=== PATIENT | male | born 1980 | race Hispanic/Latino ===

== ENCOUNTER 2020-09-15 18:00 | Inpatient (IN) | payer BC, SELFPAY ==
[2020-09-15 19:40] VITALS: BMI 38.6
[2020-09-15 20:04] LABS: Amphetamine Not Detected (NotDetected); Barbiturates Screen Not Detected (NotDetected); Benzodiazepine Screen Not Detected (NotDetected); Cocaine Metabolite Screen Not Detected (NotDetected); Medtox Control Line Valid? VALID (VALID); Medtox Reader # READER 1; Methadone Not Detected (NotDetected); Methamphetamine Not Detected (NotDetected); Opiate Screen Not Detected (NotDetected); Oxycodone Screen Not Detected (NotDetected); Phencyclidine (PCP) Not Detected (NotDetected); THC/Cannabinoid Screen Not Detected (NotDetected); Tricyclic Screen Not Detected (NotDetected)
[2020-09-15] MEDS ORDERED: Acetaminophen 325 MG TAB PO PRN (21:12)
[2020-09-15] MEDS ORDERED: hydrALAZINE 20 MG/ML VIAL SLOW IVP PRN (21:14)
[2020-09-15] MEDS ORDERED: Dextrose 50% Abboject 50 ML SYRINGE SLOW IVP PRN (21:17)
[2020-09-15] MEDS ORDERED: HumaLOG 300 UNITS/3 ML VIAL SC PRN (21:17)
[2020-09-15] MEDS ORDERED: Dextrose 5% in Water 1,000 ML IV PRN (21:17)
--- NOTE | 2020-09-15 21:29 | PDOC.HHP ---
Hospitalist HPI - History of Present Illness Right sided weakness, slurred speach History of Present Illness: Mr. Corbin is a 39-year-old male with a past medical history of hypertension, type 2 diabetes mellitus on insulin, tobacco use who presented to [place] [facility] for acute onset of right upper extremity weakness and aphasia. Patient reports that this afternoon he was sweeping snow off of his deck when all of a sudden his right arm dropped and he was no longer able to move it. Patient reports he felt lack of sensation climbed to his neck and up his face. Patient's was there who witnessed the incident and who noticed patient had garbled speech. This episode lasted approximately 15 minutes and then completely resolved. No history of episodes like this. Patient denies chest pain, shortness of breath, visual changes. Denies any abdominal pain, nausea vomiting diarrhea. No known Covid contacts. Patient does report that he has not taken any of his diabetes or blood pressure medicines in the past year secondary to losing his job and health insurance. Patient does currently have health insurance, but has not reestablish care with a primary care provider. He reports he smokes 4 to 5 cigarettes/day currently. At [place] emergency room initial blood pressure 213/118, 74, 13, 98.1, 98% on room air. CT brain with no acute findings. Troponin less than 0.018. EKG showed normal sinus rhythm with no ischemic changes. H/H 18.1/45.1. WBC 9.4. BUNs/CR 12/0.98. Sodium 140, potassium 3.7. Glucose 269. BNP less than 10. Patient received aspirin and was transferred to [facility] for further evaluation of suspected CVA Hospitalist ROS - Review of Systems Constitutional: denies: fever, chills, sweats, weakness, malaise, other Eyes: denies: pain, vision change, conjunctivae inflammation, eyelid inflammation, redness, other ENT: denies: ear pain, ear discharge, nose pain, nose discharge, nose congestion, mouth pain, mouth swelling, throat pain, throat swelling, other Respiratory: denies: cough, dry, shortness of breath, hemoptysis, SOB with excertion, pleuritic pain, sputum, wheezing, other Cardiovascular: denies: chest pain, palpitations, orthopnea, paroxysmal noc. dyspnea, edema, light headedness, other Gastrointestinal: denies: nausea, vomiting, abdominal pain, diarrhea, constipation, melena, hematochezia, other Genitourinary: denies: dysuria, frequency, incontinence, hematuria, retention, other Musculoskeletal: denies: neck pain, shoulder pain, arm pain, back pain, hand pain, leg pain, foot pain, other Skin: denies: rash, lesions, rhona, bruising, other Neurological: reports: weakness, numbness, change in speech. denies: incoordination, confusion, seizures, other - Medication Medications: Patient not currently taking any home medications but a year ago was taking Lantus Lisinopril Metformin Allergy to penicillin Hospitalist History - Past Medical History Other Medical History: Past medical history seen for Hypertension Type 2 diabetes mellitus on insulin Medication noncompliance secondary to financial issues - Past Surgical History Other Surgical History: Past surgical history of cyst removal to the neck - Family History Other Family History: Reports family history of hypertension - Social History Smoking Status: Current every day smoker Tobacco Type: cigarettes Alcohol: reports: Rare Drugs: reports: none Living Situation: With Family Activity level: independent ambulation - Exam General Appearance: NAD, awake alert Eye: PERRL, anicteric sclera ENT: normocephalic atraumatic, no oropharyngeal lesions, moist mucosa Neck: supple, symmetric, no JVD, no thyromegaly, no lymphadenopathy, no carotid bruit Heart: RRR, no murmur, no gallops, no rubs, normal peripheral pulses Respiratory: CTAB, no wheezes, no rales, no ronchi, normal chest expansion, no tachypnea, normal percussion Gastrointestinal: soft, non-tender, non-distended, normal bowel sounds, no palpable masses, no hepatomegaly, no splenomegaly, no bruit Extremities: no cyanosis, no clubbing, no edema Skin: normal turgor, no lesions, no rashes Neurological: cranial nerve grossly intact, normal sensation to touch, no weakness, no focal deficits, no new deficit Musculoskeletal: normal tone, normal strength, no muscle wasting Psychiatric: normal affect, normal behavior, A&O x 3 Hospitalist Results - Labs Result Diagrams: 09/17/20 04:05 09/17/20 04:05 Hospitalist H&P A/P - Plan Plan: Transient ischemic attack 39-year-old male with past medical history of type 2 diabetes mellitus, hypertension, tobacco use, medication noncompliance secondary to financial issues presents with right upper extremity weakness, facial droop and aphasia consistent with TIA. Symptoms lasted approximately 15 minutes and have now completely resolved. CT brain negative for acute pathology. Neuro exam within normal limits. Patient denies headache, no signs of infectious process. Patient received 325 mg of aspirin at outside hospital. Will work-up for TIA and consult neurology, recommendations appreciated. Plan MRI brain Echocardiogram, carotid ultrasound Aspirin, statin Hemoglobin A1c, lipid panel, TSH, magnesium Every 4 hours neuro checks Permissive hypertension, strict glucose control Neurology consult, recommendations appreciated Type 2 diabetes mellitus insulin-dependent Patient has history of type 2 diabetes mellitus and a year ago was on Metformin and Lantus. Patient had temporary lapse in insurance and due to financial issues stopped taking his medications a year ago. Patient now employed with in [employer], but has not reestablish care with PCP. Glucose elevated on presentation to 333. Given patient's TIA, impressed upon patient importance of restarting his diabetes medications and establishing care with a primary care provider. Will place on insulin sliding scale and closely monitor glucose levels. Plan ISS ACH S glucose checks Carb consistent diet Establish care with PCP Hypertension History of hypertension formally on lisinopril, but not taking secondary to financial issues. We will allow permissive hypertension secondary to TIA versus CVA, but make hydralazine available as needed. Tobacco use Patient currently smokes 4 cigarettes daily, down from 1 pack/day earlier this year. Patient endorses willingness to quit. Counseled on tobacco cessation. DVT prophylaxisLovenox Full codeMDM is patient's Case discussed with attending physician Dr. Guerrero.
[2020-09-15 22:10] LABS: Hemoglobin A1c 11.4 % (4.0-6.0)
[2020-09-16 04:49] LABS: %Lymphocytes 45.6 % (21.0-51.0); %Neutrophils 43.6 % (42.0-75.0); Hemoglobin 15.4 g/dL (14.0-18.0); Mean Corpuscular HGB CONC 33.8 g/dL (32.0-36.0); Mean Corpuscular Hemoglobin 28.7 pg (27.0-31.0); Mean Corpuscular Volume 84.8 fL (78.0-98.0); Mean Platelet Volume 9.9 fL (7.4-10.4); Platelet Count 192 thou/uL (130-400); RBC Distribution Width 11.3 % (11.5-14.5); Red Blood Cell (RBC) Count 5.38 mill/uL (4.70-6.10); White Blood Cell (WBC) Count 7.8 thou/uL (4.8-10.8)
[2020-09-16 04:50] LABS: #Eosinphils 0.3 thou/uL (0.0-0.7); #Lymphocytes 3.6 thou/uL (1.20-3.40); #Monocytes 0.5 thou/uL (0.11-0.59); #Neutrophils 3.4 thou/uL (1.40-6.50); %Basophils 0.6 % (0.0-1.0); %Eosinophils 3.6 % (0.0-10.0); %Monocytes 6.6 % (0.0-10.0)
[2020-09-16 05:07] LABS: Anion Gap 13 mmol/L (10-20); BUN (Urea Nitrogen) 14 mg/dL (8.9-20.6); Calc. Creatinine Clearance 214 mL/min (70-130); Carbon Dioxide 27 mmol/L (22-29); Cardiac Risk 7.9 (Less than 4.5); Chloride 101 mmol/L (98-107); Cholesterol 262 mg/dl (< 200 Desired); Glucose 245 mg/dL (70-105); HDL Cholesterol 33 mg/dL (>60 Neg Risk); Potassium 3.7 mmol/L (3.5-5.1); Sodium 137 mmol/L (136-145); Triglycerides 439 mg/dL (Less than 150)
[2020-09-16] MEDS: HumaLOG 300 UNITS/3 ML VIAL SC PRN ×3 (05:47→16:42)
[2020-09-16 05:56] LABS: SARS-CoV-2 MS2 Positive; SARS-CoV-2 N Gene Negative; SARS-CoV-2 S Gene Negative; SARS-CoV-2 by NAA Not Detected (NotDetected); SARS-CoV-2 orf1ab Negative
[2020-09-16] MEDS: Enoxaparin Sodium 40 MG/0.4 ML SYRINGE SC SCH (08:48)
[2020-09-16] MEDS: Aspirin 81 mg Enteric Coated Tablet PO SCH (08:48)
[2020-09-16] MEDS ORDERED: metFORMIN 500 MG TAB PO SCH (11:00)
--- NOTE | 2020-09-16 13:27 | ULT ---
BILATERAL CAROTID DUPLEX ULTRASOUND: DATE: 09/16/2020 HISTORY: CVA. FINDINGS: Exam is technically difficult due to neck size. Real-time color Doppler evaluation of the right and left carotid systems was performed. On the right side, peak systolic velocities of the common carotid were 113 cm/second. Internal caroti d velocities were 77 cm/second and external carotid velocities were 115 cm/second. On the left side, peak systolic velocities of the common carotid were 100 cm/second. Internal carotid velocities were 104 cm/second and external carotid velocities were 136 cm/second. Vertebral flow was antegrade bilaterally. IMPRESSION: No evidence of hemodynamically significant stenosis of either internal carotid artery by NASCET crite jaiden. POS: CHUCHO
[2020-09-16 13:30] LABS: Protein C Activity 154 % (78-152)
--- NOTE | 2020-09-16 14:03 | PDOC.EEG ---
Neurology EEG Report - Report Report: This EEG was performed using 24 channel [employer] video EEG machine with 24 disc electrodes. This was an extended 2 hours 5 minutes of inpatient video EEG recording. Digital analysis of the EEG was done for spike and seizure detection which revealed no abnormalities. Background: There is a nonsustained posterior background rhythm of 8.5-9 Hz. The background rhythm attenuates with eye opening and enhances with eye closure. Hyperventilation: Not performed. Photic Stimulation: No significant response. Sleep: Drowsiness is observed . EEG Diagnosis: Normal awake and drowsy EEG.
--- NOTE | 2020-09-16 14:10 | MRI ---
MRI brain noncontrast HISTORY: Right arm weakness. FINDINGS: There are 5 small foci of restricted diffusion involving the gyri at the left posterior fro ntotemporal and parietal levels. The largest is at the medial aspect of the parietal lobe measuring up to 1.7 cm. Subtle corresponding signal abnormalities on the FLAIR and T2-weighted images. No mass effect. Septum pellucidum is midline. No acute hemorrhage or other areas of infarct. Mild muc osal thickening within the ethmoid air cells. IMPRESSION : Several small foci of acute infarct in the posterior distribution of the left middle cerebral artery, correlating with the patient's symptoms.
--- NOTE | 2020-09-16 15:06 | CON ---
NEUROLOGY CONSULTATION DATE OF CONSULTATION: 09/16/2020 REASON FOR CONSULTATION: Episode of right-sided weakness with slurred speech/rule out stroke. HISTORY OF PRESENT ILLNESS: Mr. Corbin is a 39-year-old male with medical history significant for hypertension; type 2 diabetes mellitus, on insulin; tobacco abuse, presented to the emergency room at [place] for acute onset right upper extremity weakness with aphasia. Per the patient, yesterday afternoon he was cleaning snow when all of a sudden, he felt his right arm drop and he was no longer able to move it. Per the patient, he also has loss of sensation in his neck and also on the left side of the face. The patient's , who witnessed the incident and noticed that he had a garbled speech. The episode lasted for about 15 minutes and then completely resolved on its own. The patient denies any previous history of similar episodes. He also denies nausea, vomiting, headache, chest pain, abdominal pain, recent illness or recent exposure to COVID, double vision, loss of vision, dizziness or headache. Per patient, he has not taken his diabetes and blood pressure medications since the past year, because he lost his job and also the health insurance. He smokes about 4 to 5 cigarettes a day. In the emergency room, he was found to be in hypertensive emergency with blood pressure of 213/118, pulse 74, respiratory rate 18. CT scan was done, which did not reveal any acute intracranial pathology. Cardiac enzymes were unremarkable. EKG showed normal sinus rhythm and the labs were essentially unremarkable. He was transferred to [facility] for evaluation of transient ischemic attack. REVIEW OF SYSTEMS: All systems reviewed and were negative except the pertinent positives and negatives mentioned in the HPI. MEDICATIONS: The patient was currently not taking any medications because of loss of insurance. ALLERGIES: PENICILLIN. PAST MEDICAL HISTORY: Hypertension; type 2 diabetes mellitus, on insulin; medication noncompliance secondary to financial issues. PAST SURGICAL HISTORY: Cyst removal from the neck. FAMILY HISTORY: Significant for hypertension. SOCIAL HISTORY: The patient lives with family. He does smoke cigarettes every day. Denies alcohol, illegal drug abuse. PHYSICAL EXAMINATION: CVS: Regular rate and rhythm. CHEST: Clear. ABDOMEN: Soft. NECK: Supple. NEUROLOGICAL: Mental status, the patient is alert and oriented to person, place, and time. Recent and remote memory intact. Fund of knowledge is appropriate. Speech is clear. Cranial nerves 2 through 12 intact. Motor, muscle tone and bulk are normal. Strength 5/5 bilaterally. Sensory intact. Cerebellar, finger-nose testing intact. Gait deferred due to patient's safety reason. DATA REVIEWED: I reviewed the head CT which was negative for acute intracranial pathology. EEG did not show any evidence of seizure activity. ASSESSMENT AND PLAN: Mr. Alexia Corbin is a 39-year-old male who was consulted for an episode of slurred speech with right upper extremity weakness, which resolved on its own. Differential diagnosis includes stroke versus transient ischemic attack. Consider MRI of the brain to rule out acute intracranial process. 2D echo to evaluate for left ventricular ejection fraction and to rule out PFO or thrombus. Carotid Dopplers to rule out hemodynamically significant stenosis. Continue telemetry to rule out arrhythmias. Start aspirin, high-intensity statin for secondary stroke prevention. Check hemoglobin A1c, lipid panel, TSH, and magnesium. Neuro checks every 4 hours. Permissive control of blood pressure at this time. Strict control of blood glucose. Continue PT/OT/Speech. Check thrombosis panel. Continue Case Management consult regarding insurance issues. Continue medical management per primary team. EEG to rule out cortical irritability is negative for seizure activity. The patient counseled about tobacco abuse. We will continue to follow. Thank you for the consult. Job ID: [id number] MTDD
--- NOTE | 2020-09-16 16:13 | PDOC.HOSPP ---
- Subjective Encounter Date: 09/16/20 Encounter Time: 16:00 Subjective: f/u for R hemiparesis/dysarthria with MRI brain showing acute infarct of L MCA territory. Receiving ASA/Lipitor. Feels better overall and all deficits have resolved. - Objective Vital Signs & Weight: Vital Signs (12 hours) Temp Pulse Pulse Pulse Resp BP BP 09/16/20 15:31 55 L 78 120/71 144/94 H 09/16/20 11:47 67 134/82 09/16/20 11:34 68 14 09/16/20 08:00 97.6 F 52 L 16 BP Pulse Ox 09/16/20 15:31 09/16/20 11:47 09/16/20 11:34 134/82 96 09/16/20 08:00 128/72 98 Weight Weight 277 lb I&O: 09/15/20 09/16/20 09/17/20 06:59 06:59 06:59 Intake Total 600 Balance 600 Result Diagrams: 09/16/20 04:10 09/16/20 04:10 Additional Labs: Accuchecks 09/16/20 09/16/20 09/15/20 10:34 05:36 20:27 POC Glucose 312 H 228 H 235 H Laboratory Tests 09/15/20 09/15/20 09/15/20 21:48 21:48 21:48 Hemoglobin A1c 11.4 H Triglycerides Cholesterol HDL Cholesterol Vitamin B12 Folate 12.10 Homocysteine TSH 3rd Generation 0.3262 L SARS-CoV-2 (PCR) 09/15/20 09/15/20 09/16/20 21:48 23:03 04:10 Hemoglobin A1c Triglycerides 439 H Cholesterol 262 H HDL Cholesterol 33 Vitamin B12 334 Folate Homocysteine TSH 3rd Generation SARS-CoV-2 (PCR) Not Detected 09/16/20 12:43 Hemoglobin A1c Triglycerides Cholesterol HDL Cholesterol Vitamin B12 Folate Homocysteine 6.74 TSH 3rd Generation SARS-CoV-2 (PCR) Radiology Reviewed by me: Yes (MRI brain - acute infarct L MCA distribution; Carotid sono - neg) EKG Reviewed by me: Yes (Tele - SR) Hospitalist ROS - Medication Medications: Active Medications Generic Name Dose Route Start Last Admin Trade Name Freq PRN Reason Stop Dose Admin Acetaminophen 650 mg 09/15/20 21:12 09/16/20 05:50 Acetaminophen 325 Mg Tab PO 650 mg Q4H PRN Administration Headache/Fever/Mild Pain (1-3) Aspirin 81 mg 09/16/20 09:00 09/16/20 08:48 Aspirin 81 Mg Enteric Coated Tablet PO 81 mg DAILY SHANEL Administration Enoxaparin Sodium 40 mg 09/16/20 09:00 09/16/20 08:48 Enoxaparin Sodium 40 Mg/0.4 Ml Syringe SC 40 mg 0900 SHANEL Administration Insulin Human Lispro 0 units 09/15/20 21:17 09/16/20 11:31 Humalog 300 Units/3 Ml Vial SC 5 unit .MILD SLIDING SCALE PRN Administration Mild Correctional Scale Insulin Human Lispro 0 units 09/15/20 21:17 09/15/20 22:17 Humalog 300 Units/3 Ml Vial SC 2 unit .BEDTIME SLIDING SC PRN Administration Bedtime Correctional Scale - Exam General Appearance: NAD, awake alert Eye: PERRL, anicteric sclera ENT: normocephalic atraumatic, no oropharyngeal lesions Neck: supple, symmetric, no JVD, no thyromegaly, no lymphadenopathy Heart: RRR, no murmur, no gallops, no rubs, normal peripheral pulses Heart - other findings: S1, S2 Respiratory: CTAB, no wheezes, no rales, no ronchi, normal chest expansion Gastrointestinal: soft, non-tender, non-distended, normal bowel sounds, no palpable masses Extremities: no cyanosis, no clubbing, no edema Skin: normal turgor, no lesions Neurological: cranial nerve grossly intact, no new deficit Musculoskeletal: normal tone, normal strength, no muscle wasting Psychiatric: normal affect, A&O x 3 Hosp A/P (1) Acute CVA (cerebrovascular accident) Code(s): I63.9 - CEREBRAL INFARCTION, UNSPECIFIED Status: Acute Plan: Continue routine stroke protocol, continue ASA/Lipitor, 2D echo pending (2) Right hemiparesis Code(s): G81.91 - HEMIPLEGIA, UNSPECIFIED AFFECTING RIGHT DOMINANT SIDE Status: Acute Plan: Resolved (3) Diabetes mellitus type II, uncontrolled Code(s): E11.65 - TYPE 2 DIABETES MELLITUS WITH HYPERGLYCEMIA Status: Chronic Plan: Poor control due to non-compliance, start Metformin/Glipizide, ISS, ADA, A1C - 11.4 (4) HTN (hypertension) Code(s): I10 - ESSENTIAL (PRIMARY) HYPERTENSION Status: Chronic Qualifiers: Hypertension type: essential hypertension Qualified Code(s): I10 - Essential (primary) hypertension Plan: Start Lisinopril 5mg BID, serial BP monitoring (5) HLD (hyperlipidemia) Code(s): E78.5 - HYPERLIPIDEMIA, UNSPECIFIED Status: Chronic Plan: Poorly controlled, continue Lipitor 40mg HS - Plan PT/OT, social media sr strategy manager, out of bed/ambulate, DVT proph w/SCDs Stable currently Continue ASA/Lipitor Add Metformin 1000mg BID Add Glipizide 5mg BID Add Lisinopril 5mg BID 2D echo pending Likely home in am
[2020-09-16] MEDS: metFORMIN 500 MG TAB PO SCH (16:42)
[2020-09-16] MEDS: glipiZIDE 5 MG TAB PO SCH (16:42)
[2020-09-16] MEDS: Lisinopril 5 MG TAB PO SCH (20:22)
[2020-09-16] MEDS ORDERED: Atorvastatin Calcium 40 MG TAB PO SCH (21:00)
[2020-09-17 04:35] LABS: #Basophils 0.1 thou/uL (0.0-0.2); #Eosinphils 0.3 thou/uL (0.0-0.7); #Lymphocytes 3.3 thou/uL (1.20-3.40); #Monocytes 0.5 thou/uL (0.11-0.59); #Neutrophils 3.1 thou/uL (1.40-6.50); %Basophils 1.2 % (0.0-1.0); %Eosinophils 4.5 % (0.0-10.0); %Lymphocytes 45.2 % (21.0-51.0); %Monocytes 7.3 % (0.0-10.0); %Neutrophils 41.8 % (42.0-75.0); Hemoglobin 15.6 g/dL (14.0-18.0); Mean Corpuscular HGB CONC 34.9 g/dL (32.0-36.0); Mean Corpuscular Hemoglobin 29.5 pg (27.0-31.0); Mean Corpuscular Volume 84.8 fL (78.0-98.0); Mean Platelet Volume 9.7 fL (7.4-10.4); Platelet Count 191 thou/uL (130-400); RBC Distribution Width 11.2 % (11.5-14.5); Red Blood Cell (RBC) Count 5.27 mill/uL (4.70-6.10); White Blood Cell (WBC) Count 7.3 thou/uL (4.8-10.8)
[2020-09-17 04:55] LABS: Anion Gap 13 mmol/L (10-20); BUN (Urea Nitrogen) 13 mg/dL (8.9-20.6); Calc. Creatinine Clearance 225 mL/min (70-130); Calcium 8.9 mg/dL (7.8-10.44); Carbon Dioxide 26 mmol/L (22-29); Chloride 101 mmol/L (98-107); Glucose 172 mg/dL (70-105); Potassium 3.7 mmol/L (3.5-5.1); Sodium 136 mmol/L (136-145)
[2020-09-17] MEDS: Aspirin 81 mg Enteric Coated Tablet PO SCH (08:16)
[2020-09-17] MEDS: Lisinopril 5 MG TAB PO SCH (08:16)
[2020-09-17] MEDS: metFORMIN 500 MG TAB PO SCH (08:16)
[2020-09-17] MEDS: glipiZIDE 5 MG TAB PO SCH (08:16)
[2020-09-17] MEDS: Enoxaparin Sodium 40 MG/0.4 ML SYRINGE SC SCH (08:16)
[2020-09-17] MEDS: HumaLOG 300 UNITS/3 ML VIAL SC PRN (11:20)
--- NOTE | 2020-09-17 12:59 | PDOC.NEUPN ---
- Subjective Encounter Date: 09/17/20 Subjective: Mr. Corbin denies any new complaints and no focal deficits. MRI of the brain is positive for acute lacunar infarctions in the left middle cerebral artery territory. - Objective Vital Signs & Weight: Vital Signs (12 hours) Temp Pulse Resp BP BP Pulse Ox 09/17/20 11:18 97.5 F L 63 18 116/68 97 09/17/20 08:15 97.5 F L 57 L 18 115/58 L 987 H 09/17/20 05:19 95 09/17/20 03:04 98.1 F 52 L 18 103/56 L 95 Weight Weight 276 lb 9.6 oz I&O: 09/16/20 09/17/20 09/18/20 06:59 06:59 06:59 Intake Total 600 490 Balance 600 490 Result Diagrams: 09/17/20 04:05 09/17/20 04:05 Additional Labs: Accuchecks 09/17/20 09/17/20 09/16/20 10:37 05:35 20:37 POC Glucose 257 H 204 H 176 H 09/16/20 16:39 POC Glucose 260 H Radiology Reviewed by me: Yes EKG Reviewed by me: Yes ROS - Review of Systems Constitutional: denies: fever, chills, sweats, weakness, malaise, other Eyes: denies: pain, vision change, conjunctivae inflammation, eyelid inflammation, redness, other ENT: denies: ear pain, ear discharge, nose pain, nose discharge, nose congestion, mouth pain, mouth swelling, throat pain, throat swelling, other Respiratory: denies: cough, dry, shortness of breath, hemoptysis, SOB with excertion, pleuritic pain, sputum, wheezing, other Cardiovascular: denies: no pertinent history, AFIB, CAD, CHF, HTN, AL, Syncope, Hyperlipidemia, Mitral valve stenosis, Aortic stenosis, Valve insufficiency, Pulmonary hypertension, Other Gastrointestinal: denies: nausea, vomiting, abdominal pain, diarrhea, constipation, melena, hematochezia, other Musculoskeletal: denies: neck pain, shoulder pain, arm pain, back pain, hand pain, leg pain, foot pain, other Skin: denies: rash, lesions, rhona, bruising, other Neurological: denies: weakness, numbness, incoordination, change in speech, confusion, seizures, other - Medication Medications: Active Medications Generic Name Dose Route Start Last Admin Trade Name Priscilla PRN Reason Stop Dose Admin Acetaminophen 650 mg 09/15/20 21:12 09/16/20 05:50 Acetaminophen 325 Mg Tab PO 650 mg Q4H PRN Administration Headache/Fever/Mild Pain (1-3) Aspirin 81 mg 09/16/20 09:00 09/17/20 08:16 Aspirin 81 Mg Enteric Coated Tablet PO 81 mg DAILY SHANEL Administration Atorvastatin Calcium 40 mg 09/16/20 21:00 09/16/20 20:22 Atorvastatin Calcium 40 Mg Tab PO 40 mg HS SHANEL Administration Enoxaparin Sodium 40 mg 09/16/20 09:00 09/17/20 08:16 Enoxaparin Sodium 40 Mg/0.4 Ml Syringe SC 40 mg 0900 SHANEL Administration Glipizide 5 mg 09/16/20 16:30 09/17/20 08:16 Glipizide 5 Mg Tab PO 5 mg BID-AC SHANEL Administration Insulin Human Lispro 0 units 09/15/20 21:17 09/17/20 11:20 Humalog 300 Units/3 Ml Vial SC 4 unit .MILD SLIDING SCALE PRN Administration Mild Correctional Scale Insulin Human Lispro 0 units 09/15/20 21:17 09/15/20 22:17 Humalog 300 Units/3 Ml Vial SC 2 unit .BEDTIME SLIDING SC PRN Administration Bedtime Correctional Scale Lisinopril 5 mg 09/16/20 21:00 09/17/20 08:16 Lisinopril 5 Mg Tab PO 5 mg BID SHANEL Administration Metformin HCl 1,000 mg 09/16/20 17:00 09/17/20 08:16 Metformin 500 Mg Tab PO 1,000 mg BID-WM SHANEL Administration - Exam General Appearance: awake alert Eye: PERRL ENT: normocephalic atraumatic Neck: supple Respiratory: CTAB Cardiovascular: RRR Gastrointestinal: soft Extremities: no cyanosis, no clubbing Skin: normal turgor Neurological: no new deficit Musculoskeletal: normal tone, normal strength, no muscle wasting PSYCH: normal affect, normal behavior, A&O x 3 Results - Labs Result Diagrams: 09/17/20 04:05 09/17/20 04:05 Lab results: WBC 7.3 thou/uL (4.8-10.8) 09/17/20 04:05 Hgb 15.6 g/dL (14.0-18.0) 09/17/20 04:05 Hct 44.7 % (42.0-52.0) 09/17/20 04:05 MCV 84.8 fL (78.0-98.0) 09/17/20 04:05 Plt Count 191 thou/uL (130-400) 09/17/20 04:05 Neutrophils % 41.8 % (42.0-75.0) L 09/17/20 04:05 ESR Westergren 7 mm/hr (Less than 15) 09/15/20 21:48 Sodium 136 mmol/L (136-145) 09/17/20 04:05 Potassium 3.7 mmol/L (3.5-5.1) 09/17/20 04:05 Chloride 101 mmol/L (98-107) 09/17/20 04:05 Carbon Dioxide 26 mmol/L (22-29) 09/17/20 04:05 BUN 13 mg/dL (8.9-20.6) 09/17/20 04:05 Creatinine 0.80 mg/dL (0.7-1.3) 09/17/20 04:05 Glucose 172 mg/dL (70-105) H 09/17/20 04:05 Calcium 8.9 mg/dL (7.8-10.44) 09/17/20 04:05 - EKG Interpretation EKG: Normal sinus rhythm - Radiology Interpretation MRI - head Additional Comment: MRI of the brain was positive for acute infarctionslacunar in the left middle cerebral artery distribution. PN A/P (1) Acute CVA (cerebrovascular accident) Code(s): I63.9 - CEREBRAL INFARCTION, UNSPECIFIED Status: Acute (2) Right hemiparesis Code(s): G81.91 - HEMIPLEGIA, UNSPECIFIED AFFECTING RIGHT DOMINANT SIDE Status: Acute (3) Diabetes mellitus type II, uncontrolled Code(s): E11.65 - TYPE 2 DIABETES MELLITUS WITH HYPERGLYCEMIA Status: Chronic (4) HLD (hyperlipidemia) Code(s): E78.5 - HYPERLIPIDEMIA, UNSPECIFIED Status: Chronic (5) HTN (hypertension) Code(s): I10 - ESSENTIAL (PRIMARY) HYPERTENSION Status: Chronic Qualifiers: Hypertension type: essential hypertension Qualified Code(s): I10 - Essential (primary) hypertension - Plan Daily Plan: PT/OT, speech therapy, out of bed/ambulate Mr. Garcia is a 39-year-old male which was presented with an episode of right upper extremity numbness and weakness with slurred speech which resolved in about 30 minutes. MRI of the brain is positive for acute infarctions. MRI of the brain reviewed which was positive for acute lacunar infarctions in the posterior distribution of the left middle cerebral artery territory. Head CT reviewed which was negative for acute intracranial pathology on initial presentation. Carotid Dopplers did not reveal hemodynamically significant stenosis. 2D echo did not show any thrombus or PFO. Neurochecks every 4 hours. EEG reviewed which was negative for seizure activity. Monitor blood pressure and blood glucose. Continue medical management of blood pressure and diabetes. Medical compliance is encouraged. Continue aspirin and high intensity statin for secondary stroke prevention. Telemetry did not reveal any arrhythmias. Thrombosis panel sent. Results pending at this time. PT/OT/speech Continue medical management per primary team. Plan discussed in detail with the patient.
[2020-09-17 15:44] VITALS: BP 121/60; TEMP 97.9
[2020-09-17 15:46] LABS: INR-International Normal Ratio 0.9; PTT 25.1 sec (22.9-36.1); Prothrombin Time 12.1 sec (12.0-14.7)
[2020-09-17 15:48] LABS: D-Dimer Test Less than 0.27 *mcg/mL (0.27-0.43); Factor VIII Test 174.8 % ACTIVE (56-157)
--- NOTE | 2020-09-17 17:53 | DIS ---
DATE OF ADMISSION: 09/15/2020 DATE OF DISCHARGE: 09/17/2020 DISCHARGE DIAGNOSES: 1. Acute cerebrovascular accident of the left MCA territory with transient right hemiparesis and dysarthria. 2. Diabetes mellitus, type 2, uncontrolled. 3. Hypertension, labile. 4. Hyperlipidemia. 5. Tobacco use. CONSULTATIONS: Dr. Angel with Neurology Service. PERTINENT LABORATORY AND X-RAY FINDINGS: Hemoglobin A1c 11.4. Total cholesterol 262, triglycerides 439, and HDL 33. TSH 0.326. CBC within normal limits. Urine drug screen dated 09/15/2020, negative. COVID-19 PCR not detected on 09/15/2020. CT of the brain without contrast dated 09/15/2020, showed no acute intracranial process. Carotid Doppler study dated 09/16/2020, showed no hemodynamically significant stenosis. MRI of the brain dated 09/16/2020, showed an acute infarct in the posterior distribution of the left middle cerebral artery. 2D transthoracic echocardiogram dated 09/16/2020, showed ejection fraction of 60% to 65%. Normal study, otherwise. HOSPITAL COURSE: The patient was initially admitted to the telemetry unit after presenting with right hemiparesis and dysarthria concerning for acute CVA. The patient's symptoms had resolved prior to evaluation in the emergency room. However, the patient underwent general stroke protocol including CT imaging of the brain showing no acute process. The patient received aspirin 325 mg in addition to Lipitor. The patient underwent echocardiogram and carotid Doppler study as well as MRI imaging of the brain, which confirmed evidence of an acute infarct in the left middle cerebral artery territory. The patient's neurologic deficits had resolved prior to admission in the emergency room and the patient remained clinically stable without return of deficits during the hospital course. The patient was evaluated by the Neurology Service with recommendations for secondary prevention including high-intensity statin in addition to aspirin and control of blood pressure and glucose values. The patient was initiated on glipizide and metformin with recommendations for further titration of his regimen on an ongoing basis after discharge. Overall, the patient did remain clinically stable during the hospital course. I have reviewed the followup instructions with the patient at the time of discharge, who verbalized understanding and in agreement. DISCHARGE MEDICATIONS: 1. Aspirin 81 mg p.o. daily. 2. Lipitor 40 mg p.o. at bedtime. 3. Metformin 1000 mg p.o. b.i.d. 4. Glipizide 5 mg p.o. b.i.d. 5. Lisinopril 5 mg p.o. b.i.d. FOLLOWUP: The patient to follow up with Dr. Saurabh Rubio within 7 days of discharge. CONDITION ON DISCHARGE: Stable. ACTIVITY: Ad-kimber. DIET: Heart healthy and ADA. CODE STATUS: Full. DISPOSITION: Home on 09/17/2020. TIME SPENT: Total time preparing and coordinating discharge, 32 minutes. Job ID: [id number]
[2020-09-19 17:13] LABS: HEX PHOS LA Tube 1 27.6 SEC; HEX PHOS LA Tube 2 27.7 SEC
== END 2020-09-17 16:29 | disposition home or self-care (01) | DRG 65 ==
LOC: 2NO 18:11
PROVIDERS: ADMIT Internal Medicine; ATTEND Family Medicine
DX: I63.9 Cerebral infarction, unspecified (principal); G81.91 Hemiplegia, unspecified affecting right dominant side; I10 Essential (primary) hypertension; Z20.822 Contact with and (suspected) exposure to COVID-19; E11.65 Type 2 diabetes mellitus with hyperglycemia; F17.210 Nicotine dependence, cigarettes, uncomplicated; R47.1 Dysarthria and anarthria; E78.5 Hyperlipidemia, unspecified; Z79.4 Long term (current) use of insulin; Z79.899 Other long term (current) drug therapy; Z88.0 Allergy status to penicillin; Z91.14 Patient's other noncompliance with medication regimen
CPT/HCPCS: 36415; 36416; 70551; 80048; 80061; 80306; 82607; 82746; 83036; 83090; 84443; 85025; 85240; 85300; 85303; 85305; 85307; 85379; 85598; 85610; 85652; 85730; 86147; 87635; 93306; 93880; 95712; 95819; 95957; J1650; U0003

== ENCOUNTER 2021-07-27 06:08 | Emergency (ER) | payer BC ==
[2021-07-27] MEDS ORDERED: Ketorolac Tromethamine 30 MG/ML VIAL ONE (06:26)
[2021-07-27] MEDS ORDERED: Dexamethasone 10 MG/ML VIAL ONE ×2 (06:26→06:38)
[2021-07-27] MEDS ORDERED: Metoclopramide HCl 10 MG/2 ML VIAL ONE (06:26)
[2021-07-27 07:04] LABS: ALT (SGPT) 28 U/L (8-55); AST (SGOT) 16 U/L (5-34); Albumin 4.5 g/dL (3.5-5.0); Alkaline Phosphatase 52 U/L (40-110); Anion Gap 13 mmol/L (10-20); BUN (Urea Nitrogen) 14 mg/dL (8.9-20.6); Bilirubin, Total 0.7 mg/dL (0.2-1.2); CK (CPK) 160 U/L (30-200); Calc. Creatinine Clearance 0 mL/min (70-130); Calcium 9.9 mg/dL (7.8-10.44); Carbon Dioxide 26 mmol/L (22-29); Chloride 101 mmol/L (98-107); Glucose 265 mg/dL (70-105); Protein, Total 7.5 g/dL (6.0-8.3); Sodium 136 mmol/L (136-145)
[2021-07-27 07:05] LABS: #Eosinphils 0.1 thou/uL (0.0-0.7); #Lymphocytes 2.4 thou/uL (1.20-3.40); #Monocytes 0.9 thou/uL (0.11-0.59); #Neutrophils 8.8 thou/uL (1.40-6.50); %Basophils 0.3 % (0.0-1.0); %Neutrophils 71.8 % (42.0-75.0); Hemoglobin 15.8 g/dL (14.0-18.0); Mean Corpuscular Hemoglobin 29.6 pg (27.0-31.0); Mean Corpuscular Volume 84.6 fL (78.0-98.0); Mean Platelet Volume 9.8 fL (7.4-10.4); Platelet Count 197 thou/uL (130-400); RBC Distribution Width 11.2 % (11.5-14.5); Red Blood Cell (RBC) Count 5.33 mill/uL (4.70-6.10); White Blood Cell (WBC) Count 12.2 thou/uL (4.8-10.8)
== END 2021-07-27 07:34 | disposition home or self-care (01) ==
LOC: ERS 06:08
DX: R51.9 Headache, unspecified (principal); E11.9 Type 2 diabetes mellitus without complications; Z86.73 Personal history of transient ischemic attack (TIA), and cerebral infarction without residual deficits; Z87.891 Personal history of nicotine dependence
CPT/HCPCS: 70450; 80053; 82550; 85025; 96365; 96375; J1100; J1885; J2765

== ENCOUNTER 2022-01-21 23:20 | Emergency (ER) | payer BC, SELFPAY ==
[2022-01-22 00:44] LABS: #Basophils 0.1 thou/uL (0.0-0.2); #Eosinphils 0.2 thou/uL (0.0-0.7); #Lymphocytes 3.1 thou/uL (1.20-3.40); #Monocytes 0.6 thou/uL (0.11-0.59); #Neutrophils 3.4 thou/uL (1.40-6.50); %Basophils 1.1 % (0.0-1.0); %Eosinophils 2.1 % (0.0-10.0); %Lymphocytes 42.1 % (21.0-51.0); %Monocytes 7.7 % (0.0-10.0); %Neutrophils 47.1 % (42.0-75.0); Mean Corpuscular HGB CONC 34.8 g/dL (32.0-36.0); Mean Corpuscular Hemoglobin 29.7 pg (27.0-31.0); Mean Corpuscular Volume 85.3 fL (78.0-98.0); Mean Platelet Volume 9.5 fL (7.4-10.4); Platelet Count 219 thou/uL (130-400); RBC Distribution Width 11.6 % (11.5-14.5); Red Blood Cell (RBC) Count 5.71 mill/uL (4.70-6.10); White Blood Cell (WBC) Count 7.3 thou/uL (4.8-10.8)
[2022-01-22 01:07] LABS: ALT (SGPT) 25 U/L (8-55); AST (SGOT) 24 U/L (5-34); Albumin 4.6 g/dL (3.5-5.0); Alkaline Phosphatase 64 U/L (40-110); Anion Gap 19 mmol/L (10-20); BUN (Urea Nitrogen) 13 mg/dL (8.9-20.6); Bilirubin, Total 0.5 mg/dL (0.2-1.2); Calc. Creatinine Clearance 0 mL/min (70-130); Calcium 9.8 mg/dL (7.8-10.44); Carbon Dioxide 21 mmol/L (22-29); Chloride 101 mmol/L (98-107); Globulin 4.2 g/dL (2.4-3.5); Glucose 382 mg/dL (70-105); Potassium 4.3 mmol/L (3.5-5.1); Protein, Total 8.8 g/dL (6.0-8.3); Sodium 137 mmol/L (136-145)
== END 2022-01-22 03:53 | disposition home or self-care (01) ==
LOC: ERS 23:20
DX: R20.2 Paresthesia of skin (principal); E11.65 Type 2 diabetes mellitus with hyperglycemia; I10 Essential (primary) hypertension; Z86.73 Personal history of transient ischemic attack (TIA), and cerebral infarction without residual deficits; Z87.891 Personal history of nicotine dependence; Z79.82 Long term (current) use of aspirin; Z79.84 Long term (current) use of oral hypoglycemic drugs; Z79.899 Other long term (current) drug therapy
CPT/HCPCS: 36416; 70450; 71045; 80053; 84484; 85025; 93005

== ENCOUNTER 2022-09-04 17:06 | Emergency (ER) | payer BC, SELFPAY | END 2022-09-04 18:18 | disposition left against medical advice (07) | LOC: ERS 17:06 | DX: Z53.21 Procedure and treatment not carried out due to patient leaving prior to being seen by health care provider (principal) | CPT/HCPCS: 93005 ==

== ENCOUNTER 2024-03-09 02:31 | Inpatient (IN) | payer SELFPAY ==
[2024-03-09] MEDS ORDERED: Nitroglycerin 0.4 MG TAB (25 Tab Bottle) SL PRN (04:00)
[2024-03-09] MEDS ORDERED: Zolpidem Tartrate 5 MG TAB PO PRN (04:00)
[2024-03-09] MEDS ORDERED: Morphine 2 MG/ML VIAL SLOW IVP PRN ×2 (04:00→09:00)
[2024-03-09] MEDS ORDERED: Dextrose 50% Abboject 50 ML SYRINGE SLOW IVP PRN (04:34)
[2024-03-09] MEDS ORDERED: Dextrose 5% in Water 1,000 ML IV PRN (04:34)
[2024-03-09] MEDS ORDERED: Electrolyte Replacement Protocol 1 EACH FS SCH (04:34)
[2024-03-09] MEDS ORDERED: Glucagon 1 MG/ML KIT IM PRN (04:34)
[2024-03-09 04:36] LABS: #Basophils Less than 0.03 10x3/uL (0.0-0.2); %Basophils 0.1 % (0.0-1.0); %Eosinophils 1.7 % (0.0-10.0); %Lymphocytes 21.3 % (21.0-51.0); %Monocytes 6.9 % (0.0-10.0); %Neutrophils 69.7 % (42.0-75.0); Hematocrit 48.5 % (42.0-52.0); Hemoglobin 17.5 g/dL (14.0-18.0); Mean Corpuscular HGB CONC 36.1 g/dL (32.0-36.0); Mean Corpuscular Hemoglobin 28.9 pg (27.0-31.0); Platelet Count 196 10x3/uL (130-400); RBC Distribution Width 11.9 % (11.5-14.5); Red Blood Cell (RBC) Count 6.06 mill/uL (4.70-6.10)
[2024-03-09 04:53] LABS: INR-International Normal Ratio 0.9; Prothrombin Time 12.5 sec (12.0-14.7)
[2024-03-09 04:54] LABS: PTT 71.9 sec (22.9-36.1)
[2024-03-09 04:56] LABS: ALT (SGPT) 27 U/L (8-55); AST (SGOT) 58 U/L (5-34); Albumin 4.2 g/dL (3.5-5.0); Alkaline Phosphatase 62 U/L (40-110); Anion Gap 18 mmol/L (10-20); BUN (Urea Nitrogen) 11 mg/dL (8.9-20.6); Bilirubin, Total 0.4 mg/dL (0.2-1.2); Calc. Creatinine Clearance 0 mL/min (70-130); Calcium 9.5 mg/dL (7.8-10.44); Carbon Dioxide 17 mmol/L (22-29); Chloride 106 mmol/L (98-107); Estimated GFR 95; Globulin 3.3 g/dL (2.4-3.5); Glucose 301 mg/dL (70-105); Magnesium 1.8 mg/dL (1.6-2.6); Protein, Total 7.5 g/dL (6.0-8.3); Sodium 137 mmol/L (136-145)
[2024-03-09] MEDS: Sodium Chloride 0.9% 1,000 ML IV SCH (05:16)
[2024-03-09] MEDS: Magnesium 2 GM/50 ML(in water) 2 GM in Premix 1 BAG IVPB SCH (05:17)
[2024-03-09] MEDS ORDERED: hydrALAZINE 20 MG/ML VIAL SLOW IVP PRN (05:18)
[2024-03-09] MEDS ORDERED: Labetalol HCl 100 MG/20 ML VIAL SLOW IVP PRN (05:18)
[2024-03-09 06:10] LABS: Lactic Acid 1.4 mmol/L (0.5-2.2)
[2024-03-09] MEDS ORDERED: Heparin 10,000 UNITS/ 10 ML VIAL ONE ×2 (06:19→06:46)
[2024-03-09] MEDS ORDERED: Nitroglycerin 50 MG/250 ML BOT 250 ML ONE (06:29)
[2024-03-09] MEDS ORDERED: Rocuronium Bromide 10 MG/ML (10ML VIAL) ONE (06:48)
[2024-03-09] MEDS ORDERED: SUCCINYLCHOLINE/SOD CL,ISO/PF 200 MG/10 ML SYRINGE FS ONE (06:48)
[2024-03-09 07:00] LABS: Amphetamine Not Detected (NotDetected); Barbiturates Screen Not Detected (NotDetected); Benzodiazepine Screen Not Detected (NotDetected); Cocaine Metabolite Screen Not Detected (NotDetected); Methadone Not Detected (NotDetected); Methamphetamine Not Detected (NotDetected); Opiate Screen Not Detected (NotDetected); Oxycodone Screen Not Detected (NotDetected); Phencyclidine (PCP) Not Detected (NotDetected); THC/Cannabinoid Screen Not Detected (NotDetected); Tricyclic Screen Not Detected (NotDetected)
[2024-03-09 07:01] LABS: Bacteria/HPF None Seen HPF (None Seen); Bilirubin Negative (Negative); Blood, Urine Negative (Negative); Clarity Clear (Clear); Glucose, Urine (Dipstick) Greater than 1000 mg/dL (Negative); Ketone, Urine 60 mg/dL (Negative); Leukocyte Negative Leu/uL (Negative); Nitrite Negative (Negative); Protein, Urine (Dipstick) 10 mg/dL (Neg-Trace); RBC/HPF None Seen HPF (0-3); Squamous Epithelial None Seen HPF (0-3); Urobilinogen Normal mg/dL (Less than 2); WBC/HPF 0-3 HPF (0-3); pH, Urine 6.5 (5.0-9.0)
[2024-03-09] MEDS ORDERED: Fentanyl 250 MCG/5 ML VIAL ONE (07:02)
[2024-03-09] MEDS ORDERED: HYDROmorphone 0.5 MG/0.5 ML SYRINGE ONE (07:02)
[2024-03-09 07:07] LABS: Specific Gravity, Urine Greater than 1.060 (1.002-1.036)
[2024-03-09] MEDS ORDERED: niCARdipine 25 MG in Sodium Chloride 0.9% 250 ML 250 ML IVPB PRN (07:21)
[2024-03-09] MEDS: Propofol 1,000 MG/100 ML VIAL IV ONE (08:00)
[2024-03-09] MEDS: Morphine 4 MG/ML VIAL SLOW IVP PRN (08:00)
[2024-03-09 08:10] LABS: Actual Bicarbonate (HCO3a) 19.3 mEq/L (22-28); Base Excess (BEa) -7.5 mEq/L (-2.0 to +3.0); CO2 Tension 43.8 mmHg (35.0-45.0); Calcium, Ionized (arterial) 1.12 mmol/L (1.12-1.30); Hematocrit-ABG 49 % (42.0-52.0); Hemoglobin (Hb) 16.5 g/dL (14.0-18.0); O2 Tension (PaO2), arterial 112.3 mmHg (80.0-100.0); pH, Arterial 7.262 (7.35-7.45)
[2024-03-09 08:12] LABS: Puncture Site ALINE
[2024-03-09] MEDS: Lorazepam 2 MG/ML VIAL ONE (08:36)
[2024-03-09] MEDS ORDERED: DISCONTINUE PREVIOUS NARCOTIC PAIN MEDICATIONS AND BENZODIAZEPINES FS SCH (09:00)
[2024-03-09] MEDS ORDERED: Lorazepam 2 MG/ML VIAL SLOW IVP PRN (09:00)
[2024-03-09] MEDS ORDERED: Electrolyte Replacement Protocol FS PRN (09:00)
[2024-03-09] MEDS ORDERED: Fentanyl BOLUS 250 ML IVPB PRN (09:00)
[2024-03-09] MEDS ORDERED: Propofol BOLUS 1,000 MG/100 ML VIAL IV PRN (09:00)
[2024-03-09] MEDS: Electrolyte Replacement Protocol 1 EACH FS ONE (09:14)
[2024-03-09] MEDS: Ventilator Sedation Protocol 1 EACH FS ONE (09:14)
[2024-03-09] MEDS: Metoprolol Tartrate 25 MG TAB PO SCH (09:22)
[2024-03-09] MEDS: Clopidogrel Bisulfate 75 MG TAB PO SCH (09:22)
[2024-03-09] MEDS: Aspirin Chewable 81 MG TAB PO SCH (09:22)
[2024-03-09] MEDS: Famotidine/PF 20 mg/2ml Vial SLOW IVP SCH (09:22)
[2024-03-09] MEDS: Insulin Lispro 100 UNIT/ML 10 ML VIAL SC PRN (09:26)
[2024-03-09 09:38] LABS: Troponin I 13.404 ng/mL (< 0.028)
[2024-03-09] MEDS: Insulin NPH Human Isophane 100 UNITS/ML (10 ML VIAL) SC SCH (09:56)
[2024-03-09] MEDS: Propofol 1,000 MG/100 ML VIAL IV PRN (09:56)
[2024-03-09] MEDS: Fentanyl CADD 100 ML IV SCH (11:37)
[2024-03-09 12:59] LABS: INR-International Normal Ratio 0.9; PTT 25.7 sec (22.9-36.1); Prothrombin Time 12.6 sec (12.0-14.7)
[2024-03-09 13:21] LABS: D-Dimer Test Less than 0.27 mcg/mL (0.27-0.43)
[2024-03-09 13:27] LABS: Troponin I 6.921 ng/mL (< 0.028)
[2024-03-09] MEDS ORDERED: Iopamidol 370 76% 100 ML VIAL ONE ×2 (15:21→15:36)
[2024-03-09 18:24] LABS: Troponin I 5.499 ng/mL (< 0.028)
[2024-03-09 21:25] LABS: Troponin I 5.225 ng/mL (< 0.028)
[2024-03-09] MEDS: Atorvastatin Calcium 40 MG TAB PO SCH (21:49)
[2024-03-10 04:14] LABS: #Basophils Less than 0.03 10x3/uL (0.0-0.2); %Basophils 0.1 % (0.0-1.0); %Lymphocytes 20.5 % (21.0-51.0); %Monocytes 7.9 % (0.0-10.0); %Neutrophils 70.4 % (42.0-75.0); Hematocrit 41.8 % (42.0-52.0); Hemoglobin 14.5 g/dL (14.0-18.0); Mean Corpuscular HGB CONC 34.7 g/dL (32.0-36.0); Mean Corpuscular Hemoglobin 28.5 pg (27.0-31.0); Mean Corpuscular Volume 82.3 fL (78.0-98.0); Mean Platelet Volume 12.5 fL (7.4-10.4); Platelet Count 162 10x3/uL (130-400); RBC Distribution Width 12.3 % (11.5-14.5); Red Blood Cell (RBC) Count 5.08 mill/uL (4.70-6.10)
[2024-03-10 04:28] LABS: ALT (SGPT) 23 U/L (8-55); AST (SGOT) 40 U/L (5-34); Albumin 3.3 g/dL (3.5-5.0); Alkaline Phosphatase 50 U/L (40-110); Anion Gap 15 mmol/L (10-20); BUN (Urea Nitrogen) 12 mg/dL (8.9-20.6); Bilirubin, Total 0.7 mg/dL (0.2-1.2); Calc. Creatinine Clearance 242 mL/min (70-130); Calcium 8.7 mg/dL (7.8-10.44); Carbon Dioxide 19 mmol/L (22-29); Cardiac Risk 8.8 (Less than 4.5); Chloride 109 mmol/L (98-107); Cholesterol 237 mg/dl (< 200 Desired); Estimated GFR 118; Globulin 2.7 g/dL (2.4-3.5); Glucose 259 mg/dL (70-105); HDL Cholesterol 27 mg/dL (>60 Neg Risk); Potassium 3.8 mmol/L (3.5-5.1); Sodium 139 mmol/L (136-145); Triglycerides 632 mg/dL (Less than 150)
[2024-03-10 04:34] LABS: Hemoglobin A1c 12.3 % (4.0-6.0)
[2024-03-10 07:05] LABS: Actual Bicarbonate (HCO3a) 22.7 mEq/L (22-28); Base Excess (BEa) -0.6 mEq/L (-2.0 to +3.0); CO2 Tension 33.5 mmHg (35.0-45.0); Calcium, Ionized (arterial) 1.17 mmol/L (1.12-1.30); Carboxyhemoglobin (COHb) 0.8 gm% (0.0-3.0); Hematocrit-ABG 44 % (42.0-52.0); Potassium - ABG Lab 3.68 mmol/L (3.70-5.30); pH, Arterial 7.448 (7.35-7.45)
[2024-03-10 07:07] LABS: Puncture Site RRA
[2024-03-10 07:08] LABS: ALV-art Gradient 161.325 mmHg (0-20)
[2024-03-10] MEDS ORDERED: Amiodarone 150 MG in Dextrose 5% in Water 100 ML IVPB SCH (13:30)
[2024-03-10] MEDS ORDERED: Amiodarone 450 MG in Dextrose 5% in Water 250 ML IVPB SCH (13:30)
[2024-03-10 14:35] LABS: Cardiolipin IgA Ab 1.3 APL-U/mL (<14 Negative); Cardiolipin IgG Ab 0.6 GPL-U/mL (<10 Negative); Cardiolipin IgM Ab Less than 0.9 MPL-U/mL (<10 Negative); EliA APS New Method **** NEW METHOD ****
[2024-03-10] MEDS: DC Sedation Protocol FS ONE (15:47)
[2024-03-10] MEDS: hydrALAZINE 20 MG/ML VIAL SLOW IVP PRN (16:49)
[2024-03-10] MEDS: Labetalol HCl 100 MG/20 ML VIAL SLOW IVP PRN (19:38)
[2024-03-10] MEDS ORDERED: Ondansetron ODT 4 MG TAB PO PRN (19:51)
[2024-03-10] MEDS: Ondansetron PF 4 MG/2 ML Vial IVP PRN (20:02)
[2024-03-10] MEDS: Metoprolol Tartrate 50 MG TAB PO SCH (20:02)
[2024-03-10] MEDS: Famotidine 20 MG TAB PO SCH (20:03)
[2024-03-10] MEDS: HYDROcodone/Acetaminophen 5/325 mg Tablet PO PRN (20:03)
[2024-03-10] MEDS: Insulin Lispro 100 UNIT/ML 10 ML VIAL SC PRN (20:24)
[2024-03-11 16:49] LABS: Sodium 136 mmol/L (136-145)
[2024-03-11] MEDS: NURTEC 75 MG PO PRN (18:12)
[2024-03-11] MEDS: niCARdipine 25 MG in Sodium Chloride 0.9% 250 ML 250 ML IVPB SCH (20:04)
[2024-03-11] MEDS: Lorazepam 2 MG/ML VIAL SLOW IVP PRN (20:27)
[2024-03-11 21:46] LABS: Anion Gap 18 mmol/L (10-20); BUN (Urea Nitrogen) 13 mg/dL (8.9-20.6); Calc. Creatinine Clearance 241 mL/min (70-130); Calcium 9.8 mg/dL (7.8-10.44); Carbon Dioxide 19 mmol/L (22-29); Chloride 101 mmol/L (98-107); Estimated GFR 118; Glucose 221 mg/dL (70-105); Potassium 3.1 mmol/L (3.5-5.1); Sodium 135 mmol/L (136-145)
[2024-03-11] MEDS: Sodium Chloride 3% 100 ML IVPB SCH (22:02)
[2024-03-11] MEDS ORDERED: Electrolyte Replacement Protocol 1 EACH FS SCH (22:15)
[2024-03-11] MEDS: Potassium Chloride 20 MEQ in Premix 1 BAG IVPB SCH (23:35)
[2024-03-12] MEDS: niCARdipine 50 MG, Admixture Fee 1 EACH in Sodium Chloride 0.9% 250 ML 230 ML IV SCH (00:24)
[2024-03-12 01:33] LABS: Anion Gap 18 mmol/L (10-20); BUN (Urea Nitrogen) 13 mg/dL (8.9-20.6); Calc. Creatinine Clearance 225 mL/min (70-130); Calcium 9.4 mg/dL (7.8-10.44); Carbon Dioxide 15 mmol/L (22-29); Chloride 105 mmol/L (98-107); Estimated GFR 116; Glucose 227 mg/dL (70-105); Potassium 3.8 mmol/L (3.5-5.1); Sodium 134 mmol/L (136-145)
[2024-03-12] MEDS: Sodium Chloride 3% 100 ML IVPB SCH (02:45)
[2024-03-12 06:52] LABS: Anion Gap 15 mmol/L (10-20); BUN (Urea Nitrogen) 13 mg/dL (8.9-20.6); Calc. Creatinine Clearance 231 mL/min (70-130); Calcium 9.4 mg/dL (7.8-10.44); Carbon Dioxide 19 mmol/L (22-29); Chloride 104 mmol/L (98-107); Estimated GFR 117; Glucose 211 mg/dL (70-105); Potassium 3.3 mmol/L (3.5-5.1); Sodium 135 mmol/L (136-145)
[2024-03-12] MEDS: Potassium Chloride 20 MEQ TAB PO SCH ×2 (08:11→19:38)
[2024-03-12 08:38] LABS: Anion Gap 16 mmol/L (10-20); BUN (Urea Nitrogen) 14 mg/dL (8.9-20.6); Calc. Creatinine Clearance 228 mL/min (70-130); Calcium 9.5 mg/dL (7.8-10.44); Carbon Dioxide 18 mmol/L (22-29); Chloride 105 mmol/L (98-107); Estimated GFR 116; Glucose 225 mg/dL (70-105); Potassium 3.5 mmol/L (3.5-5.1); Sodium 135 mmol/L (136-145)
[2024-03-12] MEDS: ADMIXTURE FEE IVPB SCH (11:24)
[2024-03-12] MEDS: SODIUM CHLORIDE 3% IVPB SCH (11:24)
[2024-03-12] MEDS: Sodium Chloride 0.9% 1,000 ML IV SCH ×2 (11:26→20:37)
[2024-03-12 12:29] VITALS: BMI 38.0
[2024-03-12 15:18] LABS: Anion Gap 15 mmol/L (10-20); BUN (Urea Nitrogen) 15 mg/dL (8.9-20.6); Calc. Creatinine Clearance 253 mL/min (70-130); Carbon Dioxide 18 mmol/L (22-29); Chloride 106 mmol/L (98-107); Estimated GFR 120; Glucose 210 mg/dL (70-105); Potassium 3.5 mmol/L (3.5-5.1); Sodium 135 mmol/L (136-145)
[2024-03-12] MEDS: Admixture Fee 1 EACH in Sodium Chloride 3% 100 ML IVPB SCH (16:07)
[2024-03-12 19:30] LABS: Anion Gap 13 mmol/L (10-20); BUN (Urea Nitrogen) 15 mg/dL (8.9-20.6); Calc. Creatinine Clearance 236 mL/min (70-130); Calcium 9.3 mg/dL (7.8-10.44); Carbon Dioxide 22 mmol/L (22-29); Chloride 107 mmol/L (98-107); Estimated GFR 118; Glucose 186 mg/dL (70-105); Potassium 3.5 mmol/L (3.5-5.1); Sodium 138 mmol/L (136-145)
[2024-03-13 05:57] LABS: Anion Gap 14 mmol/L (10-20); BUN (Urea Nitrogen) 15 mg/dL (8.9-20.6); Calc. Creatinine Clearance 234 mL/min (70-130); Calcium 9.2 mg/dL (7.8-10.44); Carbon Dioxide 19 mmol/L (22-29); Chloride 106 mmol/L (98-107); Estimated GFR 118; Glucose 196 mg/dL (70-105); Potassium 3.5 mmol/L (3.5-5.1); Sodium 135 mmol/L (136-145)
[2024-03-13] MEDS: Potassium Chloride 20 MEQ TAB PO SCH (08:13)
[2024-03-13] MEDS: Lisinopril 5 MG TAB PO SCH (10:49)
[2024-03-14 08:56] LABS: Anion Gap 15 mmol/L (10-20); BUN (Urea Nitrogen) 12 mg/dL (8.9-20.6); Calc. Creatinine Clearance 227 mL/min (70-130); Calcium 9.1 mg/dL (7.8-10.44); Carbon Dioxide 23 mmol/L (22-29); Chloride 102 mmol/L (98-107); Estimated GFR 117; Glucose 196 mg/dL (70-105); Potassium 3.6 mmol/L (3.5-5.1); Sodium 136 mmol/L (136-145)
[2024-03-14] MEDS: Lisinopril 10 MG TAB PO SCH (09:51)
[2024-03-15 05:23] LABS: Anion Gap 13 mmol/L (10-20); Calc. Creatinine Clearance 197 mL/min (70-130); Calcium 9.4 mg/dL (7.8-10.44); Carbon Dioxide 27 mmol/L (22-29); Chloride 101 mmol/L (98-107); Estimated GFR 112; Glucose 177 mg/dL (70-105); Potassium 3.1 mmol/L (3.5-5.1); Sodium 138 mmol/L (136-145)
[2024-03-15 05:50] LABS: BUN (Urea Nitrogen) 12 mg/dL (8.9-20.6)
[2024-03-15] MEDS: Potassium Chloride 20 MEQ TAB PO SCH (06:05)
[2024-03-15] MEDS ORDERED: Acetaminophen 325 MG TAB PO PRN (08:45)
[2024-03-15 10:56] LABS: HEX PHOS LA Tube 1 36.9 SEC; HEX PHOS LA Tube 2 33.2 SEC; Hexagonal Phospholipid Neut 3.7 SEC (0-8.0)
[2024-03-15 11:30] LABS: Protein C Activity 164 % (78-152)
[2024-03-15 12:45] VITALS: BMI 37.3
[2024-03-16 05:32] LABS: Anion Gap 11 mmol/L (10-20); BUN (Urea Nitrogen) 13 mg/dL (8.9-20.6); Calc. Creatinine Clearance 201 mL/min (70-130); Calcium 9.5 mg/dL (7.8-10.44); Carbon Dioxide 27 mmol/L (22-29); Chloride 103 mmol/L (98-107); Estimated GFR 113; Glucose 163 mg/dL (70-105); Potassium 3.3 mmol/L (3.5-5.1); Sodium 138 mmol/L (136-145)
[2024-03-16] MEDS: Potassium Chloride 20 MEQ TAB PO SCH (09:48)
[2024-03-16] MEDS: Aspirin Chewable 81 MG TAB PO SCH (09:48)
[2024-03-16] MEDS: Clopidogrel Bisulfate 300 MG TAB PO SCH (09:48)
[2024-03-17] MEDS: Clopidogrel Bisulfate 75 MG TAB PO SCH (10:10)
[2024-03-17 19:43] VITALS: BP 118/74; TEMP 97.1
== END 2024-03-17 21:35 | disposition home or self-care (01) | DRG 321 ==
LOC: ERS 02:31 → SDC/OP 02:46 → CCU 03:21 → 2SE 03-11 11:49 → CCU 03-11 14:40 → 2NO 03-14 15:28
PROVIDERS: ADMIT Internal Medicine Cardiovascular Disease; ATTEND Internal Medicine Cardiovascular Disease
PROC: 027034Z Dilation of Coronary Artery, One Artery with Drug-eluting Intraluminal Device, Percutaneous Approach (ICD-10-PCS; principal; 2024-03-09)
PROC: 4A133R1 Monitoring of Arterial Saturation, Peripheral, Percutaneous Approach (ICD-10-PCS; 2024-03-09)
PROC: 4A023N7 Measurement of Cardiac Sampling and Pressure, Left Heart, Percutaneous Approach (ICD-10-PCS; 2024-03-09)
PROC: B2111ZZ Fluoroscopy of Multiple Coronary Arteries using Low Osmolar Contrast (ICD-10-PCS; 2024-03-09)
PROC: B2151ZZ Fluoroscopy of Left Heart using Low Osmolar Contrast (ICD-10-PCS; 2024-03-09)
PROC: 03CG3ZZ Extirpation of Matter from Intracranial Artery, Percutaneous Approach (ICD-10-PCS; 2024-03-13)
PROC: B31 Imaging, Upper Arteries, Fluoroscopy (ICD-10-PCS; 2024-03-13)
DX: I21.29 ST elevation (STEMI) myocardial infarction involving other sites (principal); G93.6 Cerebral edema; I63.511 Cerebral infarction due to unspecified occlusion or stenosis of right middle cerebral artery; J96.01 Acute respiratory failure with hypoxia; I61.9 Nontraumatic intracerebral hemorrhage, unspecified; G81.94 Hemiplegia, unspecified affecting left nondominant side; R41.4 Neurologic neglect syndrome; I97.820 Postprocedural cerebrovascular infarction following cardiac surgery; F17.210 Nicotine dependence, cigarettes, uncomplicated; E11.9 Type 2 diabetes mellitus without complications; I10 Essential (primary) hypertension; Y84.0 Cardiac catheterization as the cause of abnormal reaction of the patient, or of later complication, without mention of misadventure at the time of the procedure; E87.6 Hypokalemia; Y92.234 Operating room of hospital as the place of occurrence of the external cause; G93.2 Benign intracranial hypertension; I25.10 Atherosclerotic heart disease of native coronary artery without angina pectoris; R29.700 NIHSS score 0; E78.1 Pure hyperglyceridemia; Z79.899 Other long term (current) drug therapy; Z79.84 Long term (current) use of oral hypoglycemic drugs; Z79.82 Long term (current) use of aspirin; Z88.0 Allergy status to penicillin; Z91.148 Patient's other noncompliance with medication regimen for other reason; Z95.5 Presence of coronary angioplasty implant and graft
CPT/HCPCS: 36415; 36416; 36600; 61645; 70450; 70470; 70496; 70498; 70551; 71045; 80048; 80053; 80061; 80306; 81001; 82805; 83036; 83090; 83605; 83735; 84295; 84443; 85025; 85300; 85303; 85305; 85307; 85347; 85598; 85610; 85730; 86147; 92941; 93005; 93010; 93306; 93458; 94002; 94003; 99152; 99153; C1769; C1876; C1887; C1894; C9606; J0360; J1170; J1644; J1815; J2060; J2270; J2405; J2704; J3010; J3475; J3480; J7050; J7131; Q9967; S0028

== ENCOUNTER 2025-09-04 04:51 | Inpatient (IN) | payer SELFPAY ==
[2025-09-04] MEDS ORDERED: Acetaminophen 325 MG TAB PO PRN (09:55)
[2025-09-04] MEDS ORDERED: Glucagon 1 MG/ML KIT IM PRN (09:55)
[2025-09-04] MEDS ORDERED: Dextrose 50% Abboject 50 ML SYRINGE SLOW IVP PRN (09:55)
[2025-09-04 10:42] LABS: Cardiac Risk 4.2 (Less than 4.5); Cholesterol 134.0 mg/dl (< 200 Desired); HDL Cholesterol 32.0 mg/dL (>60 Neg Risk); LDL Cholesterol, Calculated 69.0 mg/dL; Triglycerides 163.0 mg/dL (Less than 150)
[2025-09-04 11:47] VITALS: BMI 35.4
[2025-09-04] MEDS ORDERED: Nitroglycerin 0.4 MG TAB (25 Tab Bottle) SL PRN (12:34)
[2025-09-04] MEDS ORDERED: Communication Order-Pharmacy FS SCH (17:15)
[2025-09-04] MEDS: Lisinopril 10 MG TAB PO SCH (20:57)
[2025-09-05 04:41] LABS: #Basophils Less than 0.03 10x3/uL (0.0-0.2); #Eosinophils 0.14 10x3/uL (0.0-0.7); #Monocytes 0.65 10x3/uL (0.11-0.59); #Neutrophils 4.70 10x3/uL (1.40-6.50); %Basophils 0.2 % (0.0-1.0); %Eosinophils 1.6 % (0.0-10.0); %Lymphocytes 36.7 % (21.0-51.0); %Monocytes 7.5 % (0.0-10.0); %Neutrophils 53.9 % (42.0-75.0); Hematocrit 42.6 % (42.0-52.0); Hemoglobin 14.5 g/dL (14.0-18.0); Mean Corpuscular Hemoglobin 28.4 pg (27.0-31.0); Mean Corpuscular Volume 83.4 fL (78.0-98.0); Platelet Count 228 10x3/uL (130-400); Red Blood Cell (RBC) Count 5.11 mill/uL (4.70-6.10); White Blood Cell (WBC) Count 8.72 10x3/uL (4.8-10.8)
[2025-09-05 05:03] LABS: ALT (SGPT) 30 U/L (Less than 45); AST (SGOT) 21 U/L (11-34); Albumin 4.4 g/dL (3.1-4.5); Alkaline Phosphatase 40 U/L (40-110); Anion Gap 11 mmol/L (10-20); BUN (Urea Nitrogen) 15 mg/dL (8.9-20.6); Bilirubin, Total 0.8 mg/dL (0.3-1.2); Calc. Creatinine Clearance 193 mL/min (70-130); Calcium 9.5 mg/dL (7.8-10.44); Carbon Dioxide 26 mmol/L (22-29); Chloride 106 mmol/L (98-107); Globulin 2.7 g/dL (2.4-3.5); Glucose 114 mg/dL (70-105); Potassium 3.5 mmol/L (3.5-5.1); Sodium 139 mmol/L (136-145)
[2025-09-05] MEDS ORDERED: Communication Order-Pharmacy FS SCH (06:00)
[2025-09-05] MEDS ORDERED: Enoxaparin 40 MG (0.4 mL) SYRINGE SC SCH (09:00)
[2025-09-05] MEDS: Aspirin 81 mg Enteric Coated Tablet PO SCH (10:38)
[2025-09-05] MEDS ORDERED: Heparin 10,000 UNITS/ 10 ML VIAL ONE (12:03)
[2025-09-05] MEDS ORDERED: Adenosine 6 mg (2 mL) VIAL ONE (12:03)
[2025-09-05] MEDS ORDERED: Lidocaine 1% (PF) 30 ML VIAL ONE (12:03)
[2025-09-05] MEDS ORDERED: Nitroglycerin 50 MG/250 ML BOT 250 ML ONE (12:04)
[2025-09-05] MEDS ORDERED: Iopamidol 370 76% 100 ML VIAL ONE (17:29)
[2025-09-05 20:44] VITALS: BP 113/67; TEMP 98.5
== END 2025-09-05 22:55 | disposition home or self-care (01) | DRG 392 ==
LOC: 2NO 09:39 → OBSVTOIN 09-05 14:07
PROVIDERS: ADMIT Family Medicine; ATTEND Family Medicine
PROC: 4A023N7 Measurement of Cardiac Sampling and Pressure, Left Heart, Percutaneous Approach (ICD-10-PCS; principal; 2025-09-05)
PROC: B2111ZZ Fluoroscopy of Multiple Coronary Arteries using Low Osmolar Contrast (ICD-10-PCS; 2025-09-05)
DX: K21.9 Gastro-esophageal reflux disease without esophagitis (principal); I25.110 Atherosclerotic heart disease of native coronary artery with unstable angina pectoris; I10 Essential (primary) hypertension; E11.9 Type 2 diabetes mellitus without complications; E66.9 Obesity, unspecified; I34.0 Nonrheumatic mitral (valve) insufficiency; Z88.0 Allergy status to penicillin; I25.2 Old myocardial infarction; Z87.891 Personal history of nicotine dependence; Z86.73 Personal history of transient ischemic attack (TIA), and cerebral infarction without residual deficits; Z95.5 Presence of coronary angioplasty implant and graft; Z68.35 Body mass index [BMI] 35.0-35.9, adult
CPT/HCPCS: 36415; 36416; 80053; 80061; 83036; 84443; 85025; 93458; 99152; 99153; C1769; C1894; G0378; J0153; J1644; J2003; J2250; J3010; J7030; Q9967